=== PATIENT | female | born 1975 ===

== ENCOUNTER 2019-08-12 17:58 | Emergency (ER) | payer SELFPAY ==
[2019-08-12] MEDS ORDERED: Ketorolac 10 MG Tab PO ONE (17:59)
[2019-08-12] MEDS ORDERED: Ketorolac 30 MG/ML SDV IVPUSH ONE (18:34)
[2019-08-12] MEDS ORDERED: Sodium Chloride 0.9% 1,000 ML IV ONE (18:34)
[2019-08-12] MEDS ORDERED: Sodium Chloride 0.9% 10 ML Syringe FLUSH PRN (18:35)
--- NOTE | 2019-08-12 18:41 | EDM.PDOC ---
<Mohit Adair - Last Filed: 08/12/19 18:36> ED HPI GENERAL MEDICAL PROBLEM - General Chief Complaint: Genitourinary Problem Stated Complaint: PASSING KIDNEY STONE Time Seen by Provider: 08/12/19 18:36 Source of Information: Reports: Patient, RN, RN Notes Reviewed History Limitations: Reports: No Limitations - History of Present Illness INITIAL COMMENTS - FREE TEXT/NARRATIVE: Pt from [place] here on business trip presents to ER with Rt flank pain and nausea, with Hx of multiple kidney stones. Pt denies fever, chills, or dysuria. She took a Zofran just [employer]. She states that she is on a pain contract and has pain medication with her, but would like Toradol and Flomax. Onset: Today Duration: Intermittent, Waxing/Waning Location: Reports: Other (Rt Flank) Quality: Reports: Same as Previous Episode Severity: Severe Improves with: Reports: None Worsens with: Reports: None Associated Symptoms: Reports: No Other Symptoms Right Flank Pain Score (Numeric/FACES): 8 - Related Data Allergies Allergy/AdvReac Type Severity Reaction Status Date / Time betaine Allergy Hives Verified 08/12/19 18:10 gabapentin Allergy Swelling Verified 08/12/19 18:10 iodine Allergy Hives Verified 08/12/19 18:10 Penicillins Allergy Anaphylactic Verified 08/12/19 18:10 Shock sulfamethoxazole Allergy Rash Verified 08/12/19 18:10 [From Bactrim] trimethoprim [From Bactrim] Allergy Rash Verified 08/12/19 18:10 Home Meds: Home Meds Hydrocodone/Acetaminophen [Hydrocodon-Acetaminophn 10-325] 1 tab PO BID [History] Lisinopril 5 mg PO DAILY 08/12/19 [History] Morphine Sulfate [Morphine Sulfate ER] 15 mg PO BEDTIME 08/12/19 [History] Ondansetron [Zofran] 4 mg PO Q4HR PRN 08/12/19 [History] Simvastatin 5 mg PO DAILY 08/12/19 [History] amLODIPine [Norvasc] 5 mg PO DAILY 08/12/19 [History] cloNIDine [Catapres] 0.1 mg PO DAILY 08/12/19 [History] Past Medical History HEENT History: Reports: None Cardiovascular History: Reports: High Cholesterol, Hypertension Respiratory History: Reports: None Gastrointestinal History: Reports: None Genitourinary History: Reports: Renal Calculus Other Genitourinary History: history kidney stones since age 20 [employer] TE[employer] History: Reports: None Musculoskeletal History: Reports: None Neurological History: Reports: Head Trauma Psychiatric History: Reports: None Endocrine/Metabolic History: Reports: Obesity/BMI 30+ Hematologic History: Reports: None Immunologic History: Reports: None Oncologic (Cancer) History: Reports: None Dermatologic History: Reports: None - Infectious Disease History Infectious Disease History: Reports: Chicken Pox - Past Surgical History Head Surgeries/Procedures: Reports: None Other Neurological Surgeries/Procedures: back Musculoskeletal Surgical History: Reports: Carpal Tunnel Social & Family History - Tobacco Use Smoking Status *Q: Current Every Day Smoker Years of Tobacco use: 22 Packs/Tins Daily: 0.5 Second Hand Smoke Exposure: No - Caffeine Use Caffeine Use: Reports: Coffee, Soda - Recreational Drug Use Recreational Drug Use: No Recreational Drug Type: Reports: Marijuana/Hashish Other Recreational Drug Type: medical marijuana - Living Situation & Occupation Living situation: Reports: with Family Occupation: Employed ED ROS GENERAL - Review of Systems Review Of Systems: ROS reveals no pertinent complaints other than HPI. ED EXAM, RENAL/ - Physical Exam Exam: See Below Exam Limited By: No Limitations General Appearance: Alert, No Apparent Distress, Obese, Other (Uncomfortable but non-toxic appearing) Head: Atraumatic, Normocephalic Respiratory/Chest: No Respiratory Distress, No Accessory Muscle Use, Chest Non- Tender, Wheezing (mild), Other (occ. cough) Cardiovascular: Regular Rate, Rhythm GI/Abdominal: Normal Bowel Sounds, Soft, No Distention, Other (Benign obese abdomen) Back Exam: Full Range of Motion, CVA Tenderness (R). No: CVA Tenderness (L) Extremities: Normal Inspection Neurological: Alert, Oriented, No Motor/Sensory Deficits Psychiatric: Normal Mood Skin Exam: Warm, Dry, Intact, Normal Color, No Rash Course - Vital Signs Last Recorded V/S: Last Vital Signs Temp 36.3 C 08/12/19 18:05 Pulse 66 08/12/19 18:27 Resp 20 08/12/19 18:27 BP 173/89 H 08/12/19 18:42 Pulse Ox 99 08/12/19 18:27 - Orders/Labs/Meds Orders: Active Orders 24 hr Category Date Time Status Peripheral IV Care [RC] . DIRECTED Care 08/12/19 18:35 Active Sodium Chloride 0.9% [Saline Flush] Med 08/12/19 18:35 Active 10 ml FLUSH ASDIRECTED PRN Peripheral IV Insertion Adult [OM.PC] Stat Oth 08/12/19 18:34 Ordered Medication Orders Sodium Chloride (Saline Flush) 10 ml FLUSH ASDIRECTED PRN PRN Reason: Keep Vein Open Last Admin: 08/12/19 18:46 Dose: 10 ml Labs: Laboratory Tests 08/12/19 08/12/19 08/12/19 Range/Units 18:22 18:33 18:45 WBC 13.0 H (5.0-10.0) 10^3/uL RBC 5.77 H (4.2-5.4) 10^6/uL Hgb 16.8 H (12.0-16.0) g/dL Hct 47.2 H (37.0-47.0) % MCV 81.8 (80-100) fL MCH 29.1 (27.0-34.0) pg MCHC 35.6 H (33.0-35.0) g/dL Plt Count 306 (150-450) 10^3/uL Neut % (Auto) 74.1 (42.2-75.2) % Lymph % (Auto) 19.5 L (20.5-50.1) % [place] % (Auto) 5.8 (2-8) % Eos % (Auto) 0.4 L (1.0-3.0) % Baso % (Auto) 0.2 (0.0-1.0) % Sodium (135-145) mmol/L Potassium (3.6-5.0) mmol/L Chloride (101-111) mmol/L Carbon Dioxide (21.0-31.0) mmol/L Anion Gap BUN (7-18) mg/dL Creatinine (0.6-1.3) mg/dL Est Cr Clr Drug Dosing mL/min Estimated GFR (MDRD) Glucose (74-105) mg/dL Calcium (8.4-10.2) mg/dl Urine Color Red (YELLOW) Urine Appearance Cloudy (CLEAR) Urine pH 5.5 (5.0-9.0) Ur Specific [place] 1.025 (1.005-1.030) Urine Protein 30 H (NEGATIVE) Urine Glucose (UA) Negative (NEGATIVE) Urine Ketones Negative (NEGATIVE) Urine Occult Blood Large H (NEGATIVE) Urine Nitrite Negative (NEGATIVE) Urine Bilirubin Negative (NEGATIVE) Urine Urobilinogen 0.2 (0.2-1.0) mg/dL Ur Leukocyte Esterase Negative (NEGATIVE) Urine RBC >100 H /HPF Urine WBC 0-5 (0-5/HPF) /HPF Ur Epithelial Cells Moderate H (NOT SEEN) /HPF Urine Bacteria Moderate H (0-FEW/HPF) /HPF Urine HCG, Qual Negative 08/12/19 Range/Units 18:45 WBC (5.0-10.0) 10^3/uL RBC (4.2-5.4) 10^6/uL Hgb (12.0-16.0) g/dL Hct (37.0-47.0) % MCV (80-100) fL MCH (27.0-34.0) pg MCHC (33.0-35.0) g/dL Plt Count (150-450) 10^3/uL Neut % (Auto) (42.2-75.2) % Lymph % (Auto) (20.5-50.1) % [place] % (Auto) (2-8) % Eos % (Auto) (1.0-3.0) % Baso % (Auto) (0.0-1.0) % Sodium 139 (135-145) mmol/L Potassium 3.7 (3.6-5.0) mmol/L Chloride 106 (101-111) mmol/L Carbon Dioxide 22.0 (21.0-31.0) mmol/L Anion Gap 14.7 BUN 10 (7-18) mg/dL Creatinine 0.8 (0.6-1.3) mg/dL Est Cr Clr Drug Dosing 105.72 mL/min Estimated GFR (MDRD) > 60 Glucose 87 (74-105) mg/dL Calcium 9.1 (8.4-10.2) mg/dl Urine Color (YELLOW) Urine Appearance (CLEAR) Urine pH (5.0-9.0) Ur Specific [place] (1.005-1.030) Urine Protein (NEGATIVE) Urine Glucose (UA) (NEGATIVE) Urine Ketones (NEGATIVE) Urine Occult Blood (NEGATIVE) Urine Nitrite (NEGATIVE) Urine Bilirubin (NEGATIVE) Urine Urobilinogen (0.2-1.0) mg/dL Ur Leukocyte Esterase (NEGATIVE) Urine RBC /HPF Urine WBC (0-5/HPF) /HPF Ur Epithelial Cells (NOT SEEN) /HPF Urine Bacteria (0-FEW/HPF) /HPF Urine HCG, Qual Meds: Medications Generic Name Dose Route Start Last Admin Trade Name Dorothy PRN Reason Stop Dose Admin Sodium Chloride 10 ml 08/12/19 18:35 08/12/19 18:46 Saline Flush FLUSH 10 ml ASDIRECTED PRN Administration Keep Vein Open Discontinued Medications Generic Name Dose Route Start Last Admin Trade Name Freq PRN Reason Stop Dose Admin Hydromorphone HCl 0.5 mg 08/12/19 19:15 08/12/19 19:19 Dilaudid IVPUSH 08/12/19 19:16 0.5 mg ONETIME ONE Administration Hydromorphone HCl 0.5 mg 08/12/19 20:10 Dilaudid IVPUSH 08/12/19 20:11 ONETIME ONE Sodium Chloride 1,000 mls @ 999 mls/hr 08/12/19 18:34 08/12/19 18:46 Normal Saline IV 08/12/19 19:34 999 mls/hr .BOLUS ONE Administration Ketorolac Tromethamine 30 mg 08/12/19 18:34 08/12/19 18:46 Toradol IVPUSH 08/12/19 18:35 30 mg ONETIME ONE Administration Ondansetron HCl 4 mg 08/12/19 19:11 08/12/19 19:17 Zofran IV 08/12/19 19:12 4 mg ONETIME ONE Administration Tamsulosin HCl 0.4 mg 08/12/19 20:10 Flomax PO 08/12/19 20:11 ONETIME ONE - Re-Assessments/Exams Free Text/Narrative Re-Assessment/Exam: 08/12/19 19:00 Care of pt transferred to [facility] at 1900HR shift change. Departure - Departure Disposition: Home, Self-Care Clinical Impression: Kidney stone on right side - Discharge Information Instructions: Kidney Stones, [id number] Forms: ED Department Discharge Care Plan Goals: The patient was advised of the examination and lab results during the visit. The patient was given an IV dose of Toradol, an IV dose of Zofran, 2 IV doses of Dilaudid and an oral dose of Flomax while in the ED. The patient was discharged with Toradol (10 mg) #2 to take 1 by mouth every 6 hours. The patient was also discharged with scripts for 1) Toradol (10 mg) #18 to take 1 by mouth every 6 hours, Flomax (0.4 mg) #10 to take 1 by mouth daily and [place] ( 10/325) #8 to take 1 by mouth every 6 hours as needed. If the patient has any additional symptoms or concerns, the patient should either return to the emergency department or visit her primary care facility. <Madi English - Last Filed: 08/12/19 20:19> Course - Re-Assessments/Exams Free Text/Narrative Re-Assessment/Exam: 08/12/19 19:16 Patient care was taken over at shift change. Previous assessment and plan were reviewed. The patient reports continued increased pain in her left flank despite Toradol. The patient did report some increased nausea. The patient did contact her pain management provider and was approved for emergency treatment including pain medications. An order was placed for IV Zofran and IV Dilaudid. The patient agreed to find another ride to her hotel due to IV pain medications. Departure - Departure Time of Disposition: 20:15 Condition: Fair - Discharge Information *PRESCRIPTION DRUG MONITORING PROGRAM REVIEWED*: Not Applicable *COPY OF PRESCRIPTION DRUG MONITORING REPORT IN PATIENT [place]: Not Applicable
[2019-08-12] MEDS ORDERED: Ondansetron 4 MG/2 ML SDV IV ONE (19:11)
[2019-08-12] MEDS ORDERED: HYDROmorphone 1 MG/ML Syringe IVPUSH ONE ×2 (19:15→20:10)
[2019-08-12 19:21] LABS: ANION GAP 14.7; CHLORIDE,CL 106 mmol/L (101-111); SODIUM,NA 139 mmol/L (135-145)
[2019-08-12] MEDS ORDERED: Tamsulosin 0.4 MG Cap.ER PO ONE (20:10)
[2019-08-12] MEDS ORDERED: Ketorolac 10 MG Tab ONE (20:24)
[2019-08-12] MEDS ORDERED: Ondansetron 4 MG Tab.DIS PO ONE (20:27)
== END 2019-08-12 20:34 | disposition home or self-care (01) ==
LOC: DL.ED 17:58
DX: N20.0 Calculus of kidney (principal); I10 Essential (primary) hypertension; E66.9 Obesity, unspecified; Z88.0 Allergy status to penicillin; Z88.2 Allergy status to sulfonamides; Z79.899 Other long term (current) drug therapy
CPT/HCPCS: 36415; 80048; 81001; 81025; 85025; 96361; 96374; 96375; 96376; 99283-25; A9270-GY; J1170; J1885; J2405; J7030